=== PATIENT | male | born 1945 | race Two or more races ===

== ENCOUNTER 2016-06-14 20:54 | Emergency (ER) | payer MEDICARE, MEDICAID ==
[~2016-06-14 20:54] MED LIST: ASPI81CH43 PO; CALCIUM CHLOR(10%) 100MG/ML 10ML SYRINGE IV ONE; CARV6.2551 PO; EPINEPHrine HCL 1 MG/10 ML SYRG IV ONE; FURO20TA3 PO; HYDR-2652 PO; ISOS30TA4 PO; LEV50T PO; LEVO50TA7 PO; PANT40T PO; SODIUM BICARBONATE 8.4% INJ 50ML SYRINGE IV ONE
[2016-06-14] MEDS ORDERED: SODIUM BICARBONATE 8.4% INJ 50ML SYRINGE ONE (21:03)
[2016-06-14 21:12] VITALS: BP 0/0
== END 2016-06-14 22:23 | disposition expired ==
LOC: EDBD 20:54 → ER 20:56
DX: I46.9 Cardiac arrest, cause unspecified (principal); I10 Essential (primary) hypertension; E11.9 Type 2 diabetes mellitus without complications; I50.9 Heart failure, unspecified; E78.5 Hyperlipidemia, unspecified; I25.2 Old myocardial infarction; Z79.82 Long term (current) use of aspirin; Z79.899 Other long term (current) drug therapy
CPT/HCPCS: 82962; 92950; 92960; 99291; J0171